=== PATIENT | male | born 1960 | race Caucasian/White ===

== ENCOUNTER → 2018-04-26 | Outpatient (CLI) | END | disposition home or self-care (01) ==

== ENCOUNTER 2019-08-08 01:02 | Emergency (ER) | payer MEDICARE, OTHER ==
[~2019-08-08] VITALS: Ht 175.3 cm; Wt 108.6 kg
[~2019-08-08 01:02] MED LIST: LEVO750T25 PO; PRED20TA PO
[2019-08-08 01:06] VITALS: Ht 175.3 cm; Wt 108.6 kg
[2019-08-08] MEDS ORDERED: ALBUTEROL 0.5% (NEB) 2.5 MG/0.5 ML AMP INH STA (02:13)
[2019-08-08] MEDS ORDERED: IPRATROPIUM (NEB) 0.5 MG/2.5 ML AMP INH STA (02:13)
[2019-08-08] MEDS ORDERED: predniSONE 20 MG TAB PO STA (02:13)
[2019-08-08 04:54] VITALS: BP 144/78; PULSE 88; RESP 16
== END 2019-08-08 04:56 | disposition home or self-care (01) ==
LOC: E/R 01:02
DX: J44.1 Chronic obstructive pulmonary disease with (acute) exacerbation (principal); I10 Essential (primary) hypertension
CPT/HCPCS: 71045; 93005; 94644; 99283; J7512